=== PATIENT | male | born 1960 | race Two or more races ===

== ENCOUNTER 2017-09-01 22:41 | Emergency (ER) | payer BC ==
[~2017-09-01] VITALS: Ht 170.2 cm; Wt 88.5 kg
[2017-09-01 22:48] VITALS: BP_SYST 142
[2017-09-01] MEDS ORDERED: LIDOCAINE 1% 10 MG/ML, 20 ML MDV IJ ONE (23:15)
[2017-09-01] MEDS ORDERED: DIPH-TET-PERTUS Vaccine 0.5 ML VIAL (ADACEL) IM ONE (23:15)
[2017-09-01] MEDS ORDERED: BACITRACIN 1 GM OINT TP ONE (23:15)
[2017-09-01] MEDS ORDERED: LIDOCAINE 1%, 20 ML MDV 20 ML ONE (23:16)
[2017-09-02] VITALS: BP_SYST 137
== END 2017-09-02 | disposition home or self-care (01) ==
LOC: SED 22:41
DX: S61.210A Laceration without foreign body of right index finger without damage to nail, initial encounter (principal); Z90.89 Acquired absence of other organs; W45.8XXA Other foreign body or object entering through skin, initial encounter; Y93.89 Activity, other specified; Y92.89 Other specified places as the place of occurrence of the external cause; Y99.8 Other external cause status
CPT/HCPCS: 12001; 90471; 90715; 99283; J2001